=== PATIENT | female | born 1980 | race Caucasian/White ===

== ENCOUNTER 2025-02-16 21:45 | Emergency (ER) | payer SELFPAY ==
[~2025-02-16] VITALS: Ht 167.6 cm; Wt 59.0 kg
[2025-02-16] MEDS ORDERED: Ondansetron Hydrochloride 4 MG TAB SL ONE (22:05)
[2025-02-16] MEDS ORDERED: Ondansetron4 MG PO (22:21)
[2025-02-16] MEDS ORDERED: Ondansetron 4 MG 2 TAB ED PACK PO SCH (23:05)
[2025-02-16] MEDS ORDERED: Ondansetron 4 MG 2 TAB ED PACK PO ONE (23:15)
== END 2025-02-16 23:18 | disposition home or self-care (01) ==
LOC: ED 21:45
DX: S09.90XA Unspecified injury of head, initial encounter (principal); R11.2 Nausea with vomiting, unspecified; H53.149 Visual discomfort, unspecified; V89.2XXA Person injured in unspecified motor-vehicle accident, traffic, initial encounter; Y93.89 Activity, other specified; Y92.488 Other paved roadways as the place of occurrence of the external cause; Y99.8 Other external cause status